=== PATIENT | male | born 1980 | race Caucasian/White ===

== ENCOUNTER → 2020-01-05 | Outpatient (CLI) | payer BC | LOC: SJCVCIMAG 14:13 | DX: R06.09 Other forms of dyspnea (principal); I10 Essential (primary) hypertension ==

== ENCOUNTER → 2020-01-13 | Outpatient (CLI) | payer BC | LOC: SJCVCIMAG 10:26 | PROVIDERS: ATTEND Internal Medicine Cardiovascular Disease | DX: R06.09 Other forms of dyspnea (principal); I10 Essential (primary) hypertension; E78.00 Pure hypercholesterolemia, unspecified; E78.5 Hyperlipidemia, unspecified; E66.9 Obesity, unspecified; Z79.82 Long term (current) use of aspirin; Z79.899 Other long term (current) drug therapy ==